=== PATIENT | female | born 1945 | race Hispanic/Latino ===

== ENCOUNTER 2025-01-08 11:59 | Outpatient (CLI) | payer MEDICARE, OTHER | END 2025-01-08 12:00 | disposition home or self-care (01) | LOC: SCSRAD 11:59 | PROVIDERS: ATTEND Orthopaedic Surgery | DX: M54.50 Low back pain, unspecified (principal); M47.816 Spondylosis without myelopathy or radiculopathy, lumbar region; Z98.1 Arthrodesis status | CPT/HCPCS: 72100 ==